=== PATIENT | female | born 1945 | race Caucasian/White ===

== ENCOUNTER → 2016-06-06 16:47 | Outpatient (CLI) | payer OTHER | END | disposition home or self-care (01) | LOC: D.MAMMO 13:00 | DX: Z12.31 Encounter for screening mammogram for malignant neoplasm of breast (principal) ==

== ENCOUNTER → 2017-11-02 16:59 | Outpatient (CLI) | payer OTHER | END | disposition home or self-care (01) | LOC: D.MAMMO 11:15 | DX: Z12.31 Encounter for screening mammogram for malignant neoplasm of breast (principal) ==

== ENCOUNTER → 2019-01-17 11:42 | Outpatient (CLI) | payer MEDICARE, MEDICAID ==
[~2019-01-17 11:42] MED LIST: ALBUTEROL SULF8.5 GM INH; ASPIRIN81 MG PO; FLOMAX0.4 MG PO; PLAVIX75 MG PO; PREVACID30 MG PO; TOPROL XL25 MG
--- NOTE | 2019-01-23 14:31 | ST ---
PATIENT:ESTEBAN MARRERO MEDICAL RECORD: [id number] SEX: F LOCATION:[facility] ORDER #: ADMISSION DATE: 01/17/19 AGE OF PATIENT: 73 REFERRING PHYSICIAN: INTERPRETING PHYSICIAN: RAMSES HAMILTON MD DATE OF SERVICE: 01/17/2019 PROCEDURE: Nuclear stress test. INDICATION: Angina, shortness of breath, and hypertension. She was exercised on standard Lexiscan protocol with 30 mCi of sestamibi injected at peak stress, 10 mCi used previously for rest images. FINDINGS: Gated SPECT reveals preserved ejection fraction at 68% with good wall motioning and thickening and brightening throughout all segments. SPECT imaging Cardiolite was used as myocardial perfusion agent. There is a large area of ischemia inferiorly, apically extending into the lateral segments as well. This includes the basal, mid, apical, inferior segments, the apex itself, the basal lateral and mid lateral segments. Degree of reversibility is moderate. The amount of myocardial involved is large. OVERALL IMPRESSION: This is an intermediate to high risk nuclear stress test with large amount of reversible ischemia inferiorly, apically, and laterally, possibly suggesting multivessel coronary artery disease. TRANSINT:[id number] Voice Confirmation ID: [id number] DOCUMENT ID: [id number] RAMSES HAMILTON MD at 1431 CC: ROMAIN TIPTON MD [id number] DICTATION DATE: 01/18/19 1355 PRICK STITCHER: 01/18/19 2333 DEP CLI 01/17/[address] [address]
[2019-02-05 09:45] VITALS: BMI 29.2
== END | disposition home or self-care (01) ==
LOC: D.HCCARDIO 11:42
PROVIDERS: ATTEND Internal Medicine Interventional Cardiology
DX: I20.9 Angina pectoris, unspecified (principal)

== ENCOUNTER 2019-02-05 08:06 | Outpatient (CLI) | payer MEDICARE, MEDICAID ==
[~2019-02-05] VITALS: Ht 170.2 cm; Wt 84.5 kg
--- NOTE | ~2019-02-05 | HEMODYNAMI ---
PATIENT:ESTEBAN MARRERO MEDICAL RECORD: [id number] : 49 LOCATION:[facility]UPTI ADMISSION DATE: 02/05/19 Generatedon:02/05/201911:52 Patient name: ESTEBAN MARRERO Patient #: [id number] SSN: [id number] : 1945 Date of study: 02/05/2019 Page: Of Hemodynamic Procedure Report Patient Data Patient Demographics Procedure consent was obtained First Name: ESTEBAN Gender: Female Last Name: ELIDA : 1945 Middle Initial: E Age: 73 year(s) Patient #: [id number] Race: SSN: [id number] Additional ID: [id number] Contact details Address: [address] [place] [address] State: [place] City: [place] Zip code: [address] Past Medical History Allergies: No known allergies Admission Admission Data Admission Date: 02/05/2019 Admission Time: 8:06 Arrival Date: 02/05/2019 Arrival Time: 0:00 Admit Source: Other [facility] #: [id number] Lab Results Lab Result Date: 02/05/2019 Lab Result Time: 10:35 Biochemistry Name Units Result Min Max BUN mg/dl 16 --(---*)-- 7 18 Creatinine mg/dl 0.7 --(*---)-- 0.6 1.3 CBC Name Units Result Min Max Hematocrit % 44.4 --(*---)-- 42 54 Hemoglobin g/dl 15.6 --(--*-)-- 13.5 17.5 Procedure Procedure Types Cath Procedure Diagnostic Procedure LHC [facility] w/Coronaries FFR/IVUS FFR Initial Sedation Charges Moderate Sedation up to 15 minutes PCI Procedure Coronary Stent Coronary Stent Initial Procedure Description Procedure Date Procedure Date: 02/05/2019 Procedure Start Time: 11:24 Procedure End Time: 11:43 Procedure Staff Name Function Martin Christian RN Nurse Fco Mendez MD Performing Physician Juan Phillips RT Monitor Tiffani Rodriguez RT Scrub Procedure Data Cath Procedure Fluoroscopy Diagnostic fluoroscopy Total fluoroscopy Time: 3.7 time: 3.7 min min Diagnostic fluoroscopy Total fluoroscopy dose: 412 dose: 412 mGy mGy Contrast Material Contrast Material Type Amount (ml) Isovue 300 74 Entry Location Entry Primary Successful Side Size Upsize Upsize Entry Closure Succes sful Closure Location (Fr) 1 (Fr) 2 (Fr) Remarks Device Remarks Femoral Right 5 Fr Exoseal artery Estimated blood loss: 10 ml Diagnostic catheters Device Type Used For End Catheter Placement MULTIPACK Pigtail 5 Fr Procedure catheter MULTIPACK JL 4.0 5Fr Procedure catheter MULTIPACK 3DRC 5Fr Procedure catheter Procedure Complications No complications Procedure Medications Medication Administration Route Dosage Oxygen etCO2 Nasal cannula 2 l/min Lidocaine 2% added to field 20 Heparin Flush Bag added to field 2 bags (1000units/500ml NS) 0.9% NaCl I.V. 100 ml/hr Versed I.V. 1 mg Fentanyl I.V. 50 mcg Versed I.V. 1 mg Fentanyl I.V. 50 mcg Heparin Bolus I.V. 4000 units Integrilin (Bolus I.V. 7.9 ml 2mg/ml) Plavix P.O. 600 mg Hemodynamics Rest HGB: 15.6 (g/dl) Heart Rate: 72 (bpm) Pressure Samples Time Site Value (mmHg) Purpose Heart Use Rate(bpm) 11:25 LV 144/-32,22 Snapshot 76 Snapshots Pre Cath Intra NCS Post Cath Vital Signs Time Heart Resp SPO2 etCO2 NIBP (mmHg) Rhythm Pain Sedation Rate (ipm) (%) (mmHg) Status Level (bpm) 11:18:23 71 16 98 31.5 Measuring NSR 0 (11) 10(A) , No pain 11:18:53 76 16 99 20.9 138/78(109) NSR 0 (11) 10(A) , No pain 11:23:05 76 10 98 43.5 135/76(109) NSR 0 (11) 10(A) , No pain 11:27:15 79 9 98 40.4 128/79(106) NSR 0 (11) 9(A) , No pain 11:31:29 77 7 98 47.9 126/73(98) NSR 0 (11) 9(A) , No pain 11:35:37 79 9 98 14.9 109/72(91) NSR 0 (11) 9(A) , No pain 11:40:40 78 10 99 34.4 117/78(96) NSR 0 (11) 10(A) , No pain Medications Time Medication Route Dose Verified Delivered Reason Notes Effectiveness by by 11:17:19 Oxygen etCO2 2 Fco Salazar used for Nasal l/min Andrea Christian RN procedure cannula 11:17:26 Lidocaine 2% added 20ml Fco Eagle for local to vial Andrea Mendez MD anesthetic field 11:17:32 Heparin Flush added 2 Fco Fco used for Bag to bags Andrea Mendez MD procedure (1000units/500ml field NS) 11:17:42 0.9% NaCl I.V. 100 Fco Salazar Per physician ml/hr Andrea Christian RN 11:21:19 Versed I.V. 1 mg Foc Salazar for sedation Andrea Christian RN 11:21:25 Fentanyl I.V. 50 Fco Salazar for sedation mcg Andrea Christian RN 11:25:23 Versed I.V. 1 mg Fco Dillardie for sedation Andrea Christian RN 11:25:26 Fentanyl I.V. 50 Fco Dillardie for sedation mcg Andrea Christian RN 11:32:44 Heparin Bolus I.V. 4000 Fco Salazar for verif ied units Andrea Christian RN anticoagulation with dr mendez 11:34:10 Integrilin I.V. 7.9 Fco Salazar Per physician waste d (Bolus 2mg/ml) ml Andrea Christian RN 2.1 ml of vial 11:42:02 Plavix P.O. 600 Fco Salazar for mg Andrea Christian RN antiplatelet therapy Procedure Log Time Note 10:55:28 Tiffani Rodriguez RT(R) sent for patient. Start room use. 10:59:59 Informed consent obtained and on chart 11:01:02 Admit Source: Other 11::17 Arrival Date: 02/05/2019 12:00:00 AM 11:02:52 Lab Result : Hemoglobin 15.6 g/dl 11:02:52 Lab Result : Hematocrit 44.4 % 11:02:52 Lab Result : BUN 16 mg/dl 11:02:52 Lab Result : Creatinine 0.7 mg/dl 11:03:10 Diagnostic Cath Status : Elective 11:03:19 ACC Patient presents with Unstable Angina CCS Anginal Class 4--Inability to carry out any physical activity w/o angina. Angina may occur at rest. 11:03:22 ACCPatient has been prescribed/administered the following anti-anginal medication within the last 2 weeks: Beta Sumit 11:03:25 Procedure Status Elective Heart Cath (OP). 11:03:34 Time tracking: Regular hours (M-F 7:00 - 5:00) 11:03:37 Plan of Care:Hemodynamics will remain stable., Cardiac rhythm will remain stable., Comfort level will be maintained., Respiratory function will remain adequate., Patient/ family verbilizes understanding of procedure., Procedure tolerated without complication., Recovers from procedure without complications.. 11:03:41 Patient received from Pre/Post Procedure Room to CCL 1 Alert and oriented. Tansferred to table in Supine position. 11:03:42 Correct patient and procedure confirmed by team. 11:03:43 Warm blankets applied, and rigoberto hugger turned on for patient comfort. 11:03:44 ECG and BP/O2 sat monitors applied to patient. 11:04:00 H&P Date Dictated: 01/24/2019 Within 30 days and on chart., H&P Addendum completed by physician on day of procedure. (MUST COMPLETE FOR ALL OUTPATIENTS). 11:04:07 Lab results completed and on chart. 11:16:34 Vital chart was started 11:17:17 Baseline sample Acquired. 11:17:19 Oxygen 2 l/min etCO2 Nasal cannula was administered by Martin Christian RN; used for procedure; 11:17:22 Rhythm: sinus rhythm 11:17:24 Full Disclosure recording started 11:17:25 Pre-op teaching completed and patient verbalized understanding. 11:17:25 Pre-procedure instructions explained to patient. 11:17:26 Lidocaine 2% 20ml vial added to field was administered by Fco Mendez MD; for local anesthetic; 11:17:32 Heparin Flush Bag (1000units/500ml NS) 2 bags added to field was administered by Fco Menedz MD; used for procedure; 11:17:35 Family in waiting room. 11:17:37 Patient NPO since Midnight. 11:17:42 0.9% NaCl 100 ml/hr I.V. was administered by Martin Christian RN; Per physician; 11:17:43 Patient allergic to No known allergies 11:17:45 Is the patient allergic to Iodine/contrast media? No. 11:17:46 Is patient on blood thinner?No 11:17:48 Patient diabetic? No. 11:17:50 Previous problem with sedation/anesthesia? No ? 11:17:51 Snore? No 11:17:52 Sleep apnea? No 11:17:53 Deviated septum? No 11:17:54 Sticks out tongue? Yes 11:17:54 Opens mouth fully? Yes 11:17:56 Airway obstruction? No ? 11:17:58 Dentures? No ? 11:18:00 Pre procedure: right dorsailis pedis pulse 2+ Normal; easily identifiable; not easily obliterated 11:18:02 Modified Javy's test Ulnar > 7 seconds. 11:18:03 Patient pain scale 0/10 ?. 11:18:15 IV patent on arrival in left hand with 0.9% NaCl at [facility]. 11:18:19 Right groin area was prepped with chlora-prep and draped in sterile fashion 11:18:20 Alarms reviewed by R. N. 11:18:21 Sharps counted by scrub and verified by R.N. 11:19:00 Physician arrived 11:19:03 Use device set Femoral Dx 11:19:04 ACIST Syringe (05658) opened to sterile field. 11:19:05 Medline Cath Pack ([id number]) opened to sterile field. 11:19:05 Bag Decanter (2002S) opened to sterile field. 11:19:06 ACIST Manifold (83418) opened to sterile field. 11:19:06 ACIST Hand Control (42304) opened to sterile field. 11:19:07 DIAGNOSTIC Multipack 5Fr catheter set ([id number]) opened to sterile field. 11:19:08 Tegaderm 4 x 4 (1626W) opened to sterile field. 11:19:09 EMERALD Guide Wire (221-929) opened to sterile field. 11:19:09 SHEATH 5FR [place] (JFZ117) opened to sterile field. 11:19:17 --------ALL STOP TIME OUT------ 11:19:18 Final Timeout: patient, procedure, and site verified with staff and physician. All members of the team are in agreement. 11:19:19 Right groin site verified by team. 11:19:23 Fire Safety Assessment: A--An alcohol-based skin anteseptic being used preoperatively., C--Open oxygen or nitrous oxide is being used., D--An ESU, laser, or fiber-optic light is being used. 11:19:25 Physical assessment completed. ASA score P 2 - A patient with mild systemic disease as per Fco Mendez MD. 11:19:34 2) 60-89 Mildly reduced kidney function, and other findings (as for stage 1) point to kidney disease. 11:19:43 Maximum allowable contrast dose (3.7 X eGFR X 0.75)241 ml. 11:19:47 Sedation plan: IV Moderate Sedation Medication:Versed, Fentanyl 11::19 Versed 1 mg I.V. was administered by Martin Christian RN; for sedation; 11::25 Fentanyl 50 mcg I.V. was administered by Martin Christian RN; for sedation; 11:22:55 Zero performed for pressure channel P1 11:24:51 Procedure started. 11:24:54 Local anesthetic to right femoral artery with Lidocaine 2% by Fco Mendez MD.INITIAL ACCESS ONLY 11:25:01 A 5 Fr sheath was inserted into the Right Femoral artery 11:25:10 A MULTIPACK Pigtail 5 Fr catheter was advanced over the wire and used for Procedure. 11::23 Versed 1 mg I.V. was administered by Martin Christian RN; for sedation; 11::26 Fentanyl 50 mcg I.V. was administered by Martin Christian RN; for sedation; 11:25:33 LV gram done using HE 11::35 Injector settings: Ml/sec: 10, Volume: 20, 11:25:37 LV hemodynamics recorded. 11:25:42 EF : 55 % 11::47 Catheter exchanged over wire. 11:25:50 A MULTIPACK JL 4.0 5Fr catheter was advanced over the wire and used for Procedure. 11:26:09 LCA angiography performed. 11:27:10 Catheter exchanged over wire. 11:27:14 A MULTIPACK 3DRC 5Fr catheter was advanced over the wire and used for Procedure. 11:28:03 RCA angiography performed. 11:28:05 Catheter exchanged over wire. 11:29:16 [place] Verrata Plus pressure wire (09193C) opened to sterile field. 11:29:17 GUIDE 5FR EBU 3.5 catheter ([id number]) opened to sterile field. 11:29:17 INFLATOR Merit BasixCompak (MF5454) opened to sterile field. 11:29:26 5 Fr ebu 3.5 guide catheter was inserted over the wire 11:29:36 FFR/IFR wire advanced. 11:32:00 pLAD lesion measured at 0.73 with IFR 11:32:44 Heparin Bolus 4000 units I.V. was administered by Martin Christian RN; for anticoagulation; verified with dr mendez 11:34:10 Integrilin (Bolus 2mg/ml) 7.9 ml I.V. was administered by Martin Christian RN; Per physician; wasted 2.1 ml of vial 11:36:07 Place stent Inflation Number: 1 A COBRA RX 2.5 X 18 Stent was prepped and advanced across the Prox LAD . The stent was deployed at 19 SONYA for 0:10 (min:sec) . 11:37:42 Stent catheter was removed intact over wire. 11:37:44 ACC Pre-intervention CHUN Flow is 3. 11:37:49 Pre PCI Site: [place] pLAD has 80% stenosis. 11:37:53 ACC Post-intervention CHUN Flow is 3. 11:37:59 Post PCI Site: [place] pLAD has 0% stenosis. 11:38:09 pLAD lesion measured at 0.95 with IFR post stent. 11:39:08 Guide catheter removed. 11:39:08 Wire removed. 11:40:34 EXOSEAL 5Fr (EX500) opened to sterile field. 11:40:42 Sheath removed intact; hemostasis achieved with Exoseal to the Right Femoral artery. 11:40:52 Procedure ended.(Physican Out) 11:41:06 Fluoroscopy time 03.70 minutes. 11:41:10 Fluoroscopy dose: 412 mGy 11:41:10 Flurop Dose total: 412 11:41:17 Dose Area Product 89756 mGy/cm. 11:41:23 Contrast amount:Isovue 300 74ml. 11:41:24 Maximum allowable dose exceeded? No. 11:41:40 Sharps counted by scrub and verified by R.N. 11:41:44 ACT drawn and resulted at 258 seconds. (normal therapeutic range 180-240 seconds). 11:41:50 Insertion/operative site no bleeding no hematoma. 11:41:55 Post-op/insertion site Right Femoral artery dressed using a 4 x 4 and Tegaderm. 11:41:58 Post right femoral artery:stable, soft, clean and dry 11:42:02 Plavix 600 mg P.O. was administered by Martin Christian RN; for antiplatelet therapy; 11:42:04 Post Procedure Pulses reassessed and unchanged 11:42:05 Post-procedure physical assessment completed. ASA score P 2 - A patient with mild systemic disease as per Fco Mendez MD. 11:42:07 Post procedure rhythm: unchanged. 11:42:09 Estimated blood loss: 10 ml 11:42:11 Patient needs reinforcement of post procedure teaching. 11:42:11 Post procedure instruction explained to patient.Patient verbalizes understanding. 11:42:33 Procedure type changed to Cath procedure, Diagnostic procedure, LHC, LHC w/Coronaries, FFR/IVUS, FFR Initial, Sedation Charges, Moderate Sedation up to 15 minutes, PCI procedure, Coronary Stent, Coronary Stent Initial 11:42:59 Procedure and supply charges have been captured, reviewed, submitted and are correct. 11:43:01 Procedure Complication : No complications 11:43:04 See physician's report for complete and final results. 11:43:04 Vital chart was stopped 11:43:06 Report given to Pre/Post Procedure Room. 11:43:09 Patient transfered to Pre/Post Procedure Room with Stretcher. 11:43:10 Full Disclosure recording stopped 11:43:10 Procedure ended. 11:43:20 ACC-PCI Only Patient was given prescriptions, or instructed by Fco Mendez MD to start/continue the following medications upon discharge: Aspirin, Plavix 11:43:21 End room use (Document Last) 11:44:46 End room use (Document Last) 11:45:09 End room use (Document Last) 11:51:36 FEMSTOP Gold ([id number]) opened to sterile field. 11:51:38 Femstop placed over the right femoral artery at 125 mmHg. Hemostasis achieved. Intervention Summary Intervention Notes Time ActionType Lesion and Equipment Action# Pressure Duration Attributes Used 11:36:07 Place stent Prox LAD COBRA RX 1 19 00:10 2.5 X 18 Stent Device Usage Item Name Manufacture Quantity Catalog Hospital Part Current Minimal Lot# / Number Charge Number Stock Stock Serial# Code ACIST Syringe Acist 1 76744 476753 [id number] [id number] 20 (42250) Medical Systems Inc Bag Decanter Microtek 1 566692 51143 202477 5 () Medical Inc. Medline Cath Medline 1 [id number] 502949 20367 835148 5 Pack ([id number]) ACIST Hand Acist 1 03589 220108 091143 479955 5 Control Medical (65034) Systems Inc ACIST Manifold Acist 1 15375 262746 927469 634767 5 (69145) Medical Systems Inc DIAGNOSTIC Cardinal 1 TX3856 835088 60259 089383 30 Multipack 5Fr Health catheter set ([id number]) Tegaderm 4 x 4 3M 1 1626W 847105 248751 426951 5 (1626W) SHEATH 5FR Terumo 1 LZL516 548138 324831 987514 5 [place] (WBW254) EMERALD Guide Cardinal 1 502-455 520267 102946 059493 5 Wire (502-455) Health MULTIPACK Cardinal 1 790124 5 Pigtail 5 Fr Health catheter MULTIPACK JL Cardinal 1 372596 5 4.0 5Fr Health catheter MULTIPACK 3DRC Cardinal 1 426014 5 5Fr catheter Health [place] 1 [id number] 226610 [id number] 693849 5 Verrata Plus pressure wire (25442O) INFLATOR Merit Merit 1 VE6115 303367 218891 422965 15 AdvebsilPlaycast Media Medical (DE6190) GUIDE 5FR EBU Medtronic 1 [id number] 477073 962228 210095 1 3.5 catheter ([id number]) COBRA RX 2.5 X Celonova 1 287954 [id number] [id number] 3 [id number] 18 stent Biosciences () EXOSEAL 5Fr Cardinal 1 EX500 447286 927563 387830 10 (EX500) Health FEMSTOP Gold St Ati 1 T99983 786501 311264 142315 5 ([id number]) Signature Audit [place] Stage Time Signature Unsigned Intra-Procedure 02/05/2019 Fco Mendez 11:44:46 AM Intra-Procedure 02/05/2019 Martin Christian RN 11:45:09 AM Intra-Procedure 02/05/2019 Juan Phillips RT(R) 11:45:35 AM RT(R) 02/05/2019 11:51:25 AM Intra-Procedure 02/05/2019 Juan Phillips 11:52:20 AM RT(R) [place] [id number] [place] [address]
[2019-02-05] MEDS ORDERED: TOPROL XL25 MG (09:19)
[2019-02-05] MEDS ORDERED: ALBUTEROL SULF8.5 GM INH (09:19)
[2019-02-05] MEDS ORDERED: FLOMAX0.4 MG PO (09:20)
[2019-02-05] MEDS ORDERED: PREVACID30 MG PO (09:21)
[2019-02-05 09:45] VITALS: BP 149/69; Ht 170.2 cm; Wt 84.5 kg
[2019-02-05 09:56] LABS: BASOPHILS 0.2 % (0-2); EOSINOPHILS 1.8 % (0-7); HEMATOCRIT 44.4 % (36.0-48.0); HEMOGLOBIN 15.6 g/dL (12-16); IMMATURE GRANULOCYTES 0.1 % (0-5); LYMPHOCYTES 26.1 % (15-50); MCH 32.6 pg (26.0-34.0); MCHC 35.1 g/dL (31.0-37.0); MCV 92.7 fL (80.0-100.0); MEAN PLATELET VOLUME 11.8 fL (7.4-10.4); MONOCYTES 8.5 % (2-11); NEUTROPHILS 63.3 % (40-80); PLATELET COUNT 189 10x3/uL (130-400); RBC 4.79 10x6/uL (4.00-5.40); RDW 13.6 % (11.5-14.5); WBC 9.1 10x3/uL (4.8-10.8)
[2019-02-05 11:00] LABS: ALT (SGPT) 26 U/L (10-68); CALC OSMOLALITY 287 mosm/kg (275-300); CALCIUM 8.5 mg/dL (8.5-10.1); CARBON DIOXIDE 31.7 mmol/L (21.0-32.0); CHLORIDE - SERUM 107 mmol/L (98-107); CHOL - HDL RATIO 4.1 ratio (2.3-4.1); CHOLESTEROL, TOTAL 178 mg/dL (0-200); CREATININE - SERUM 0.7 mg/dL (0.6-1.3); GLUCOSE 91 mg/dL (74-106); HDL CHOLESTEROL 43 mg/dL (32-96); LDL CHOLESTEROL 121 mg/dL (0-100); LDL-HDL RATIO 2.8 ratio (1.5-3.5); SODIUM 144 mmol/L (136-145); TRIGLYCERIDE 70 mg/dL (30-200); UREA NITROGEN 16 mg/dL (7-18); eGFR NON AFRICAN AMERICAN 87 mL/min (90-120)
[2019-02-05] MEDS ORDERED: ASPIRIN81 MG PO (12:05)
[2019-02-05] MEDS ORDERED: PLAVIX75 MG PO (12:05)
--- NOTE | 2019-02-05 12:23 | NUR ---
PT C/O NAUSEA, ZOFRAN 4 MG GIVEN IV PER ORDERS. FEMSTOP INTACT, NO BLEEDING NOTED AT GROIN SITE. PT DENIES ANY C/O CHEST PAIN. NSR, RATE IS 73, BP IS 159/95. PEDAL PULSES PALPABLE. HOB IS FLAT, FAMILY AT BEDSIDE. CALL LIGHT IN REACH, BED LOCKED AND LOW.
--- NOTE | 2019-02-05 12:49 | NUR ---
FEMSTOP INTACT, NO BLEEDING AT CATH SITE. PEDAL PULSES PALPABLE. HOB IS FLAT. VSS, SON AT BEDSIDE. AWAITING GI COCKTAIL FROM PHARMACY.
--- NOTE | 2019-02-05 12:59 | NUR ---
GI COCKTAIL GIVEN PO PER ORDERS. NSR, RATE 68, BP IS 135/72. FEMSTOP INTACT WITH NO BLEEDING NOTED. PEDAL PULSES PALPABLE. HOB IS FLAT, FAMILY AT BEDSIDE. CALL LIGHT IN REACH.
--- NOTE | 2019-02-05 13:21 | NUR ---
PT SLEEPING, RESP WITH EASE ON O2 AT 2LPM VIA NC. FEMSTOP PRESSURE WEANED BY 20, NO BLEEDING NOTED AT SITE. PEDAL PULSES PALPABLE. HOB IS FLAT, SON AT BEDSIDE. CALL LIGHT IN REACH.
--- NOTE | 2019-02-05 13:38 | OP ---
PATIENT NAME: ESTEBAN MARRERO MEDICAL RECORD: [id number] :49 LOCATION:D.CAT ADMISSION DATE: SURGEON: RAMSES HAMILTON MD DATE OF OPERATION: 02/05/2019 DATE OF SERVICE: 02/05/2019 PROCEDURES: 1. PTCA stent LAD. 2. IFR. 3. Left heart catheterization. 4. Selective coronary angiography. 5. Left ventriculogram. INDICATION: Angina and coronary artery disease. PROCEDURE IN DETAIL: After informed consent was obtained and after a detailed description of risks, benefits as well as alternative therapies, the patient elected to proceed with angiogram and angioplasty. Right femoral area was prepped and draped in normal sterile fashion. Right femoral artery was cannulated via modified Seldinger technique with placement of 5-Croatian sheath. All catheters exchanged through this sheath. FINDINGS: Left ventriculogram was performed in standard 30-degree HE view, reveals good cardiac wall motion, ejection fraction estimated at 65%. SELECTIVE CORONARY ANGIOGRAPHY: 1. Left main has no significant angiographic disease. 2. Left anterior descending has a hazy, possibly 70% stenosis in the mid vessel. IFR was markedly abnormal at 0.73. Left circumflex has mild irregularities, but no flow-limiting stenosis. Right coronary has moderate irregularities, but no flow-limiting stenosis. PTCA STENT OF THE LAD: The stent used was a 2.5 x 18 mm Cobra, taken to 19 atmospheres. Result was 0% residual stenosis. IFR normalized at 0.95. OVERALL IMPRESSION: Successful percutaneous transluminal coronary angioplasty stent of the left anterior descending going from 70% initial stenosis to 0% residual. Abnormal IFR initially at 0.73 to normal IFR after the stent at 0.95. TRANSINT:[id number] Voice Confirmation ID: [id number] DOCUMENT ID: [id number] RAMSES HAMILTON MD at 1338 CC: [id number] DICTATION DATE: 02/05/19 1141 TAVERN OPERATOR: 02/05/19 1208 REG [facility] [address] [place] [address]
--- NOTE | 2019-02-05 13:42 | NUR ---
FEMSTOP PRESSURE WEANED BY 20, NO BLEEDING AT SITE. PEDAL PULSES 2+. VSS, KORY SIPS OF SPRITE.
--- NOTE | 2019-02-05 14:14 | NUR ---
FEMSTOP PRESSURE WEANED BY 20 WITH NO BLEEDING NOTED. PULSES PALPABLE PT DENIES ANY C/O. VSS, SON AT BEDSIDE. PT KORY SIPS OF SPRITE.
--- NOTE | 2019-02-05 14:32 | NUR ---
FEMSTOP PRESSURE HAS BEEN WEANED AND FEMSTOP REMOVED. AREA IS SOFT AND NONTENDER. PEDAL PULSES PALAPBLE. HOB IS FLAT, VSS. SON AT BEDSIDE.
--- NOTE | 2019-02-05 15:00 | NUR ---
DRESSING CDI TO RIGHT GROIN, AREA IS SOFT AND NONTENDER. PEDAL PULSES PALABLE. VSS, HOB ELEVATED, CALL LIGHT IN REACH.
--- NOTE | 2019-02-05 15:36 | NUR ---
DRESSING REMAINS CDI, NSR RATE 69, BP IS 119/78. PT DENIES ANY C/O. KORY 100% OF SANDWICH AND PO FLUIDS. PEDAL PULSES PALPABLE. SON AT BEDSIDE.
--- NOTE | 2019-02-05 16:26 | NUR ---
1550 IV DC'D WITH CATH INTACT. DC INSTRUCTIONS REVIEWED WITH PT AND SON WHO VERBALIZE UNDERSTANDING. SON HAS PLAVIX PRESCRIPTION AND BOTH VERBALIZE UNDERSTANDING OF PT STARTING THIS MEDICATION TOMORROW. DRESSING REMAINS CDI TO RIGHT GROIN. PEDAL PULSES PALPABLE. PT DRESSING FOR DC. 1605 PT HAS DRESSED FOR DC TO HOME. IS ALERT AND DENIES ANY C/O. PT AMBULATED TO THE BATHROOM AND VOIDED QS. PT ESCORTED TO PRIVATE AUTO VIA WC BY NURSE WITH SON DRIVING HER HOME.
== END 2019-02-05 16:05 | disposition home or self-care (01) ==
LOC: D.CATH 08:06
PROVIDERS: ATTEND Internal Medicine Interventional Cardiology
DX: I25.119 Atherosclerotic heart disease of native coronary artery with unspecified angina pectoris (principal)

== ENCOUNTER 2019-03-01 20:22 | Outpatient (CLI) | payer MEDICARE, MEDICAID ==
[2019-02-05 09:45] VITALS: BMI 29.2
== END 2019-03-01 23:59 | disposition home or self-care (01) ==
LOC: D.MAMMO 20:22
PROVIDERS: ATTEND Clinical Nurse Specialist Family Health
DX: Z12.31 Encounter for screening mammogram for malignant neoplasm of breast (principal)

== ENCOUNTER 2019-04-22 08:00 | Outpatient (CLI) | payer MEDICARE, MEDICAID ==
[2019-02-05 09:45] VITALS: BMI 29.2
== END 2019-04-22 23:59 | disposition home or self-care (01) ==
LOC: D.MAMMO 08:00
PROVIDERS: ATTEND Clinical Nurse Specialist Family Health
DX: R92.8 Other abnormal and inconclusive findings on diagnostic imaging of breast (principal)

== ENCOUNTER → 2019-04-25 16:37 | Outpatient (CLI) | payer MEDICARE, MEDICAID ==
[2019-02-05 09:45] VITALS: BMI 29.2
[2019-04-25 17:10] LABS: CHOL - HDL RATIO 3.6 ratio (2.3-4.1); LDL-HDL RATIO 2.3 ratio (1.5-3.5)
== END | disposition home or self-care (01) ==
LOC: D.LABREF 16:37
PROVIDERS: ATTEND Internal Medicine Interventional Cardiology
DX: I25.10 Atherosclerotic heart disease of native coronary artery without angina pectoris (principal)

== ENCOUNTER → 2020-02-18 18:00 | Outpatient (CLI) | payer MEDICARE, MEDICAID ==
[2019-02-05 09:45] VITALS: BMI 29.2
== END ==
LOC: D.MAMMO 11:00
PROVIDERS: ATTEND Clinical Nurse Specialist Family Health
DX: R92.8 Other abnormal and inconclusive findings on diagnostic imaging of breast (principal)